=== PATIENT | female | born 1980 | race African-American/Black ===

== ENCOUNTER 2016-07-28 21:55 | Emergency (ER) | payer SELFPAY ==
[~2016-07-28 21:55] MED LIST: CYCL-36 PO; NAPR500 PO
[2016-07-28 22:25] VITALS: BP 142/92; PULSE 108; RESP 20; TEMP 99; O2SAT 96
[2016-07-28] MEDS ORDERED: CYCL1TAB29 PO (22:38)
[2016-07-28] MEDS ORDERED: IBUP800T23 PO (22:38)
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
[2016-07-28] MEDS ORDERED: CYCLOBENZAPRINE HCL 10 MG TAB PO ONE (23:00)
[2016-07-28] MEDS ORDERED: IBUPROFEN 800 MG TAB PO ONE (23:00)
== END 2016-07-28 23:02 | disposition home or self-care (01) ==
LOC: PHEFT 21:55
DX: T14.90 Injury, unspecified (principal); D64.9 Anemia, unspecified; Z72.0 Tobacco use; X58.XXXA Exposure to other specified factors, initial encounter; Y93.F2 Activity, caregiving, lifting; Y92.9 Unspecified place or not applicable; Y99.9 Unspecified external cause status
CPT/HCPCS: 99283

== ENCOUNTER 2016-09-29 01:45 | Emergency (ER) | payer OTHER ==
[~2016-09-29] VITALS: Ht 162.6 cm; Wt 87.7 kg
[~2016-09-29 01:45] MED LIST changes: -CYCL-36 PO; +CYCL1TAB29 PO; +IBUP800T23 PO; -NAPR500 PO
[2016-09-29 01:56] VITALS: BP 114/76; PULSE 98; RESP 12; TEMP 98.5; O2SAT 98
== END 2016-09-29 02:15 | disposition left against medical advice (07) ==
LOC: PHED 01:45
DX: R05 Cough (principal); Z53.29 Procedure and treatment not carried out because of patient's decision for other reasons
CPT/HCPCS: 99281

== ENCOUNTER 2016-12-11 20:46 | Emergency (ER) | payer OTHER ==
[~2016-12-11] VITALS: Ht 165.1 cm; Wt 86.3 kg
[2016-12-11 21:00] VITALS: BP 136/83; PULSE 93; RESP 16; TEMP 99.3; O2SAT 98
--- NOTE | 2016-12-11 21:22 | PD ---
HPI Chief Complaint: Fall Time Seen by Provider: 21:19 Travel History International Travel<30 days: No Contact w/Intl Traveler<30days: No Traveled to known affect area: No History of Present Illness HPI 36-year-old Afro[place] female who presents the emergency department status post workplace injury. Patient states she tripped while working at her workplace and fell forward on both hands. She now has pain in the right dorsal wrist. This occurred earlier today. He states she has some burning and tingling in the right hand distal to the wrist. She has decreased range of motion of the right hand and wrist secondary to pain. She has had swelling to the dorsal right wrist. Pain is a 6 out of 10. Worse with movement. She has no known drug allergies. PFSH Past Medical History Anemia: Yes Diminished Hearing: No Immunizations Current: No Tetanus Vaccination: Unknown Influenza Vaccination: No ?: Not LMP: 11/06/16 : 5 Para: 4 Miscarriage: 0 : 1 Social History Alcohol Use: Yes (WEEKENDS) Tobacco Use: Yes (3-5 day) Substance Use: No Allergies-Medications (Allergen,Severity, Reaction): Coded Allergies: No Known Allergies (Verified , 12/11/16) Reported Meds & Prescriptions Reported Meds & Active Scripts Active Ibuprofen 600 Mg Tab 600 Mg PO Q6H PRN Review of Systems General / Constitutional: No: Fever Eyes: No: Visual changes HENT: No: Headaches Cardiovascular: No: Chest Pain or Discomfort Respiratory: No: Shortness of Breath Gastrointestinal: No: Abdominal Pain Genitourinary: No: Dysuria Musculoskeletal: Positive: Arthralgias, Limited ROM, Pain Skin: No Rash Neurologic: No: Weakness Psychiatric: No: Depression Endocrine: No: Polydipsia Hematologic/Lymphatic: No: Easy Bruising Physical Exam Narrative GENERAL: Patient appears in mild distress. SKIN: Warm and dry. Normal color. Normal turgor. No abrasions or lacerations. HEAD: Atraumatic. Normocephalic. EYES: Pupils equal and round. No scleral icterus. No injection or drainage. ENT: No nasal bleeding or discharge. Mucous membranes pink and moist. Pharynx is clear. Airway is patent NECK: Trachea midline. Supple and nontender. CARDIOVASCULAR: Regular rate and rhythm. RESPIRATORY: No accessory muscle use. Clear to auscultation. Breath sounds equal bilaterally. MUSCULOSKELETAL: Extremities without clubbing, cyanosis, or edema. No obvious deformities. Patient has mild swelling over the right dorsal wrist with tenderness with palpation as well as with flexion and extension of the wrist, and with pronation and supination of the forearm. 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 Neurovascular exam is unremarkable. NEUROLOGICAL: Awake and alert. No obvious cranial nerve deficits. Motor grossly within normal limits. Five out of 5 muscle strength in the arms and legs. Normal speech. PSYCHIATRIC: Appropriate mood and affect; insight and judgment normal. Data Data Last Documented VS Vital Signs Date Time Temp Pulse Resp B/P Pulse Ox O2 Delivery O2 Flow Rate FiO2 12/11/16 21:00 99.3 93 16 136/83 98 Orders Wrist, Complete ([id number]) (12/11/16 21:15) Splint Or Brace Apply/Monitor (12/11/16 21:42) [facility] Medical Decision Making Medical Screen Exam Complete: Yes Emergency Medical Condition: Yes Differential Diagnosis Workplace injury. Right wrist sprain. Possible fracture. Narrative Course X-rays of the right wrist are ordered. Ice pack is applied to the injured area. Worker's Comp. forms are completed. X-ray shows no acute fracture or dislocation. Velcro wrist splint is applied and should remain in place until cleared by her Worker's Comp. provider. Patient take ibuprofen 600 mg 4 times a day when necessary pain. #40. Patient should ice the area frequently. Patient to follow with Worker's Comp. provider for clearance. Diagnosis Primary Impression: Accident at workplace Additional Impression: Unspecified sprain of right wrist, initial encounter Patient Instructions: General Instructions, Wrist Sprain (ED) Additional Instructions: X-rays of the right wrist are ordered. Ice pack is applied to the injured area. Worker's Comp. forms are completed. X-ray shows no acute fracture or dislocation. Velcro wrist splint is applied and should remain in place until cleared by her Worker's Comp. provider. Patient take ibuprofen 600 mg 4 times a day when necessary pain. #40. Patient should ice the area frequently. Patient to follow with Worker's Comp. provider for clearance. Med/Other Pt SpecificInfo: Prescription(s) given Scripts Ibuprofen 600 Mg [id number] Mg PO Q6H PRN (Pain/Inflammation) #40 TAB Prov:Kailash Oneal MD 12/11/16 Disposition: 01 DISCHARGE HOME Condition: Stable Ronn Noguera Dec 11, 2016 21:22
--- NOTE | 2016-12-11 21:45 | RADRPT ---
EXAM DATE/TIME: 12/11/2016 21:33 [facility] COMPARISON: No previous studies available for comparison. INDICATIONS : Right wrist pain after falling tonight. MEDICAL HISTORY : None. SURGICAL HISTORY : None. ENCOUNTER: Initial ACUITY: 1 day PAIN SCORE: 6/10 LOCATION: Right wrist. FINDINGS: Three view examination of the right wrist demonstrates no soft tissue swelling, dislocation, or fract ure. The carpal bones are in normal alignment. The joint spaces are maintained. Bony mineralizatio n is normal. CONCLUSION: No acute fracture. Conner Sood MD on December 11, 2016 at 21:43 Board Certified Radiologist. This report was verified electronically.
[2016-12-11] MEDS ORDERED: IBUP-232 PO (21:53)
== END 2016-12-11 22:14 | disposition home or self-care (01) ==
LOC: PHEFT 20:46
DX: S63.501A Unspecified sprain of right wrist, initial encounter (principal); R20.2 Paresthesia of skin; Z72.0 Tobacco use; Z86.2 Personal history of diseases of the blood and blood-forming organs and certain disorders involving the immune mechanism; W01.0XXA Fall on same level from slipping, tripping and stumbling without subsequent striking against object, initial encounter; Y99.0 Civilian activity done for income or pay
CPT/HCPCS: 73110; 99283; L3908

== ENCOUNTER 2017-01-18 00:34 | Emergency (ER) | payer OTHER ==
[~2017-01-18] VITALS: Ht 165.1 cm; Wt 84.2 kg
[~2017-01-18 00:34] MED LIST changes: -CYCL1TAB29 PO; +IBUP-232 PO; -IBUP800T23 PO
[2017-01-18 00:40] VITALS: BP 171/102; PULSE 77; RESP 16; TEMP 98.9; O2SAT 99
[2017-01-18] MEDS ORDERED: FERR325C PO (01:21)
[2017-01-18] MEDS ORDERED: Birth Control PO (01:21)
[2017-01-18 02:30] VITALS: BP 148/86; PULSE 78; RESP 18; O2SAT 100
--- NOTE | 2017-01-18 02:30 | PD ---
HPI Chief Complaint: Dizziness Time Seen by Provider: 02:24 Travel History International Travel<30 days: No Contact w/Intl Traveler<30days: No Traveled to known affect area: No History of Present Illness HPI The patient is a 36-year-old female that complains of anxiety for about a year on and off. This is her main complaint but she also complains of swelling in her left leg intermittently since May. She states she is on control pills. She states her anxiety is associated with some nonvertiginous dizziness and nausea. The patient denies any chest pain or shortness of breath. She does not have a primary care physician. [facility] Past Medical History Anemia: Yes Diminished Hearing: No Immunizations Current: No Tetanus Vaccination: > 5 Years Influenza Vaccination: No ?: Unknown LMP: ONE WEEK AGO : 5 Para: 4 Miscarriage: 0 : 1 Past Surgical History Surgical History: No Previous Surgery Social History Alcohol Use: Yes (Occasionally ) Tobacco Use: Yes (1/2 ppd ) Substance Use: No Allergies-Medications (Allergen,Severity, Reaction): Coded Allergies: No Known Allergies (Verified , 01/18/17) Reported Meds & Prescriptions Reported Meds & Active Scripts Active Reported [ Control] 1 Tab PO DAILY Iron (Ferrous Sulfate) 325 Mg Cap 325 Mg PO TIDPC Review of Systems Except as stated in HPI: all other systems reviewed are Neg Physical Exam Narrative GENERAL: The patient is alert, anxious, oriented 3 in no apparent distress. Her vital signs show blood pressure 171/102 but otherwise normal. SKIN: Focused skin assessment warm/dry. No skin rash or erythema is noted. HEAD: Atraumatic. Normocephalic. EYES: Pupils equal and round. No scleral icterus. No injection or drainage. ENT: No nasal bleeding or discharge. Mucous membranes pink and moist. NECK: Trachea midline. No JVD. CARDIOVASCULAR: Regular rate and rhythm. No murmur appreciated. RESPIRATORY: No accessory muscle use. Clear to auscultation. Breath sounds equal bilaterally. GASTROINTESTINAL: Abdomen soft, non-tender, nondistended. Hepatic and splenic margins not palpable. MUSCULOSKELETAL: No obvious deformities. No clubbing. No cyanosis. No edema. Homans sign is negative bilaterally. The right leg actually looks larger than the left leg but the patient feels swelling in her left leg. No calf vein tenderness is present and no cord is palpated in the calf of either leg. NEUROLOGICAL: Awake and alert. No obvious cranial nerve deficits. Motor grossly within normal limits. Normal speech. PSYCHIATRIC: Appropriate mood and affect; insight and judgment normal. Data Data Last Documented VS Vital Signs Date Time Temp Pulse Resp B/P (MAP) Pulse Ox O2 Delivery O2 Flow Rate FiO2 01/18/17 02:59 01/18/17 02:30 78 18 100 Room Air 01/18/17 00:40 98.9 Orders Orders Urinalysis - C+S If Indicated (01/18/17 02:26) Ed Urine Pregnancytest Poc (01/18/17 02:26) Hydroxyzine Pamoate (Vistaril) (01/18/17 02:30) Labs Laboratory Tests Test 01/18/17 02:30 Urine Color STRAW Urine Turbidity CLEAR Urine pH 6.5 Urine Specific [place] 1.003 Urine Protein NEG mg/dL Urine Glucose (UA) NEG mg/dL Urine Ketones NEG mg/dL Urine Occult Blood NEG Urine Nitrite NEG Urine Bilirubin NEG Urine Leukocyte Esterase NEG Urine RBC 0-2 /hpf Urine WBC 0-2 /hpf Urine Squamous Epithelial Cells 0-5 /hpf Urine Bacteria OCC /hpf Microscopic Urinalysis Comment CULT NOT INDICATED MDM Medical Decision Making Medical Screen Exam Complete: Yes Emergency Medical Condition: Yes Medical Record Reviewed: Yes Differential Diagnosis Anxiety, conversion reaction, DVT-unlikely, -unlikely, urinary tract infection, hyper/hypoglycemia, electrolyte disorder Narrative Course The patient left without being seen. Disposition: LEFT WITHOUT BEING SEEN Condition: Stable Carlton Stephenson MD Jan 18, 2017 02:30
[2017-01-18 02:55] LABS: BLOOD, URINE NEG (NEG); GLUCOSE,URINE NEG (NEG); KETONE, URINE NEG (NEG); NITRITE,URINE NEG (NEG); PH, URINE 6.5 (5.0-8.5)
[2017-01-18 03:02] LABS: URINE COLOR STRAW (YELLW/STRAW)
[2017-01-18 03:03] LABS: BACTERIA, URINE OCC /hpf; RBC, URINE 0-2 /hpf (0-3); SQUAMOUS EPITHELIAL CELL URINE 0-5 /hpf (0-5); WBC, URINE 0-2 /hpf (0-5)
[2017-01-18 03:04] LABS: COMMENT (UR) CULT NOT INDICATED; CULTURE IF INDICATED CULT NOT INDICATED
== END 2017-01-18 02:58 | disposition left against medical advice (07) ==
LOC: PHED 00:34
DX: R22.43 Localized swelling, mass and lump, lower limb, bilateral (principal); R42 Dizziness and giddiness; R11.0 Nausea; F17.200 Nicotine dependence, unspecified, uncomplicated; Z86.59 Personal history of other mental and behavioral disorders; Z86.2 Personal history of diseases of the blood and blood-forming organs and certain disorders involving the immune mechanism
CPT/HCPCS: 81001; 84703; 99283

== ENCOUNTER 2017-04-04 15:52 | Emergency (ER) | payer OTHER ==
[~2017-04-04] VITALS: Ht 165.1 cm; Wt 81.0 kg
[~2017-04-04 15:52] MED LIST changes: +Birth Control PO; +FERR325C PO; -IBUP-232 PO
[2017-04-04 15:59] VITALS: BP 122/76; PULSE 97; RESP 16; TEMP 98.3; O2SAT 99
--- NOTE | 2017-04-04 16:27 | PD ---
HPI Chief Complaint: Oral / Dental Pain or Problem Time Seen by Provider: 16:17 Travel History International Travel<30 days: No Contact w/Intl Traveler<30days: No Traveled to known affect area: No History of Present Illness HPI 36 old female here for evaluation of dental pain and decay 2 days. Patient reports she has multiple fractured teeth which have become increasingly more painful over the last several days. She denies fever or chills. Symptoms severity is moderate. No alleviating factors. PFSH Past Medical History Anemia: Yes Diminished Hearing: No Immunizations Current: No ?: Not LMP: 1 WEEK AGO : 5 Para: 4 Miscarriage: 0 : 1 Social History Alcohol Use: Yes (Occasionally ) Tobacco Use: Yes (1/2 ppd ) Substance Use: No Allergies-Medications (Allergen,Severity, Reaction): Coded Allergies: No Known Allergies (Verified Adverse Reaction, Unknown, 04/04/17) Reported Meds & Prescriptions Reported Meds & Active Scripts Active Reported [ Control] 1 Tab PO DAILY Iron (Ferrous Sulfate) 325 Mg Cap 325 Mg PO TIDPC Review of Systems Except as stated in HPI: all other systems reviewed are Neg General / Constitutional: No: Fever Physical Exam Narrative GENERAL: Well-nourished, well-developed patient. SKIN: Focused skin assessment warm/dry. HEAD: Normocephalic. EYES: No scleral icterus. No injection or drainage. MOUTH: Mucous membranes moist, no lesions, tongue and gums appear normal. Widespread dental decay surrounding gum erythema NECK: Supple, trachea midline. No JVD or lymphadenopathy. CARDIOVASCULAR: Regular rate and rhythm without murmurs, gallops, or rubs. RESPIRATORY: Breath sounds equal bilaterally. No accessory muscle use. GASTROINTESTINAL: Abdomen soft, non-tender, nondistended. MUSCULOSKELETAL: No cyanosis, or edema. BACK: Nontender without obvious deformity. No CVA tenderness. Data Data Last Documented VS Vital Signs Date Time Temp Pulse Resp B/P (MAP) Pulse Ox O2 Delivery O2 Flow Rate FiO2 04/04/17 15:59 98.3 97 16 122/76 (91) 99 MDM Medical Decision Making Medical Screen Exam Complete: Yes Emergency Medical Condition: Yes Differential Diagnosis Dental decay, periodontal disease, dental abscess Narrative Course 36-year-old female here for evaluation of dental pain. Patient has widespread dental decay with surrounding gum erythema. Patient will be treated with antibiotics for dental infection and given resources to local dental clinics. Diagnosis Primary Impression: Dental infection Referrals: Dentist Departure Forms: Tests/Procedures, Work Release Enter return to work date: Apr 09, 2017 Additional Instructions: Take the antibiotics as prescribed. Take [id number] Motrin 600 800 mg every 6-8 hours as needed for pain. Follow-up with the dentist Scripts Penicillin V Potassium (Penicillin V Potassium) 500 Mg Tab 500 MG PO Q6H for Infection for 7 Days, #28 TAB 0 Refills Prov: Dominga Daniel 04/04/17 Disposition: 01 DISCHARGE HOME Condition: Stable Dominga Daniel Apr 04, 2017 16:26
[2017-04-04] MEDS ORDERED: PENI500T PO (16:30)
== END 2017-04-04 16:40 | disposition home or self-care (01) ==
LOC: PHEFT 15:52
DX: K04.7 Periapical abscess without sinus (principal); F17.200 Nicotine dependence, unspecified, uncomplicated; Z86.2 Personal history of diseases of the blood and blood-forming organs and certain disorders involving the immune mechanism
CPT/HCPCS: 99283

== ENCOUNTER 2017-04-13 01:42 | Emergency (ER) | payer OTHER ==
[~2017-04-13] VITALS: Ht 165.1 cm; Wt 79.7 kg
[~2017-04-13 01:42] MED LIST changes: -FERR325C PO; +PENI500T PO
[2017-04-13 01:51] VITALS: BP 135/83; PULSE 102; RESP 18; TEMP 98.5; O2SAT 100
[2017-04-13] MEDS ORDERED: LIDOCAINE 1%/EPINEPHrine 1:100,000 SOLN 20 ML VIAL INFIL ONE (02:30)
[2017-04-13] MEDS ORDERED: oxyCODONE/ACETAMINOPHEN 7.5 MG/325 MG TAB PO ONE (03:00)
[2017-04-13] MEDS ORDERED: PERC5TAB12 PO (03:20)
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
[2017-04-13 04:06] VITALS: BP 132/79
== END 2017-04-13 04:06 | disposition home or self-care (01) ==
LOC: PHED 01:42
DX: S01.81XA Laceration without foreign body of other part of head, initial encounter (principal); F17.210 Nicotine dependence, cigarettes, uncomplicated; Y00.XXXA Assault by blunt object, initial encounter
CPT/HCPCS: 12052

== ENCOUNTER 2017-04-18 15:07 | Emergency (ER) | payer OTHER ==
[~2017-04-18] VITALS: Ht 165.1 cm; Wt 87.0 kg
[~2017-04-18 15:07] MED LIST changes: +PERC5TAB12 PO
[2017-04-18 15:09] VITALS: BP 130/85; PULSE 80; RESP 16; TEMP 98.5; O2SAT 99
--- NOTE | 2017-04-18 15:50 | PD ---
HPI Chief Complaint: Wound/Suture/Staple Re-Check Time Seen by Provider: 15:47 Travel History International Travel<30 days: No Contact w/Intl Traveler<30days: No Traveled to known affect area: No History of Present Illness HPI 36-year-old female here for suture removal to the forehead laceration. Sutures were placed 04/13/17. She denies increasing pain, drainage from the site, fever chills. PFSH Past Medical History Anemia: Yes Diminished Hearing: No Immunizations Current: No ?: Not : 5 Para: 4 Miscarriage: 0 : 1 Past Surgical History Surgical History: No Previous Surgery Social History Alcohol Use: Yes (Occasionally ) Tobacco Use: Yes (1/2 ppd ) Substance Use: No Allergies-Medications (Allergen,Severity, Reaction): Coded Allergies: No Known Allergies (Verified Adverse Reaction, Unknown, 04/18/17) Reported Meds & Prescriptions Reported Meds & Active Scripts Active No Active Prescriptions or Reported Medications Review of Systems Except as stated in HPI: all other systems reviewed are Neg Physical Exam Narrative GENERAL: Alert well-appearing female SKIN: Warm and dry. approximately 3 cm healing laceration to the left forehead. No drainage. No induration. HEAD: Normocephalic. EYES: No scleral icterus. No injection or drainage. NECK: Supple, trachea midline. No JVD or lymphadenopathy. Data Data Last Documented VS Vital Signs Date Time Temp Pulse Resp B/P (MAP) Pulse Ox O2 Delivery O2 Flow Rate FiO2 04/18/17 15:09 98.5 80 16 130/85 (100) 99 MDM Medical Decision Making Medical Screen Exam Complete: Yes Emergency Medical Condition: Yes Differential Diagnosis Suture removal, abscess, cellulitis, wound infection Narrative Course 36 old female here for suture removal to facial laceration. Sutures were removed. Wound edges well approximated. Steri-Strips were placed. Patient tolerated procedure well. Diagnosis Primary Impression: Visit for suture removal Referrals: Primary Care Physician Scripts No Active Prescriptions or Reported Meds Disposition: 01 DISCHARGE HOME Condition: Stable Dominga Daniel Apr 18, 2017 15:50
== END 2017-04-18 15:56 | disposition home or self-care (01) ==
LOC: PHEFT 15:07
DX: S01.81XD Laceration without foreign body of other part of head, subsequent encounter (principal); X58.XXXD Exposure to other specified factors, subsequent encounter; Z48.02 Encounter for removal of sutures
CPT/HCPCS: 99281